=== PATIENT | male | born 2000 | race African-American/Black ===

== ENCOUNTER 2023-11-11 08:18 | Emergency (ER) | payer MEDICAID ==
[~2023-11-11] VITALS: Ht 182.9 cm; Wt 70.0 kg
[2023-11-11 08:26] VITALS: BP 116/72; PULSE 85; RESP 15; TEMP 98; O2SAT 99
== END 2023-11-11 15:18 | disposition left against medical advice (07) ==
LOC: ER 08:18
DX: Z53.21 Procedure and treatment not carried out due to patient leaving prior to being seen by health care provider (principal)
CPT/HCPCS: 99281